=== PATIENT | female | born 1950 | race Caucasian/White ===

== ENCOUNTER 2017-08-25 17:04 | Inpatient (IN) | payer MEDICARE ==
[~2017-08-25] VITALS: Ht 158.8 cm; Wt 92.8 kg
[~2017-08-25 17:04] MED LIST: ACAR50TA; ASPI-516 CHEW; DULA10IN SQ; FLUD.1 PO; FLUO20CA12 PO; FLUT50SP EACH NARE; IBUP200T PO; LACTCAP8 PO; LEVO50TA4 PO; LOVA20TA PO; MONT10TA4 PO
[2017-08-25] MEDS ORDERED: ACETAMINOPHEN 325 MG TAB PO PRN (19:30)
[2017-08-25] MEDS ORDERED: SODIUM CHLORIDE 0.9% FLUSH 10 ML FLUSH IV FLUSH PRN (19:30)
[2017-08-25] MEDS ORDERED: SENNOSIDES 8.6 MG TAB PO PRN (19:30)
[2017-08-25] MEDS ORDERED: NALOXONE HCL 0.4 MG/ML AMP IV PUSH PRN (19:30)
[2017-08-25] MEDS ORDERED: ONDANSETRON HCL 4 MG/2 ML VIAL IVP PRN (19:30)
[2017-08-25] MEDS ORDERED: MAGNESIUM HYDROXIDE SUSP 30 ML CUP PO PRN (19:30)
[2017-08-25] MEDS ORDERED: BISACODYL 10 MG SUPP RECTAL PRN (19:30)
[2017-08-25] MEDS ORDERED: HEPARIN-D5W 25,000 U/250 ML 250 ML IV PRN (19:30)
[2017-08-25] MEDS ORDERED: diphenhydrAMINE HCL 50 MG CAP PO PRN (19:45)
[2017-08-25] MEDS ORDERED: DEXTROSE 50% IN WATER 50 ML VIAL(D50) IV PUSH PRN (19:45)
[2017-08-25] MEDS ORDERED: RESP: ALBUTEROL 2.5 MG/IPRATROPIUM 0.5 MG NEB (PRN) NEB (19:45)
[2017-08-25] MEDS ORDERED: GLUCAGON 1 MG/ML VIAL OTHER PRN (19:45)
[2017-08-25 20:00] VITALS: BP 97/50; PULSE 72; RESP 20; TEMP 97.7; O2SAT 94
[2017-08-25] MEDS: SODIUM CHLOR 0.9% 1000 ML INJ 1,000 ML IV SCH ×2 (20:00→22:01)
[2017-08-25] MEDS: SODIUM CHLORIDE 0.9% FLUSH 10 ML FLUSH IV FLUSH SCH (21:00)
[2017-08-25] MEDS: INSULIN ASPART SUPPLEMENTAL SCALE SQ SCH (21:00)
[2017-08-25] MEDS ORDERED: MORPHINE SULFATE 2 MG/ML INJ IV PUSH PRN (21:30)
[2017-08-25] MEDS ORDERED: ACETAMINOPHEN/HYDROcodone 325 MG/5 MG TAB PO PRN (21:30)
[2017-08-25] MEDS: MONTELUKAST SODIUM 10 MG TAB PO SCH (22:01)
[2017-08-25 22:35] LABS: TROPONIN I LESS THAN 0.02 NG/ML (0.02-0.05)
--- NOTE | 2017-08-25 22:57 | HHI.HP ---
[facility] [place] [facility] No Primary Care Physician Admission Diagnosis Right pulmonary emboli . Diagnoses: (1) Pulmonary emboli (2) Atypical chest pain Chief Complaint: Chest pain with left arm feeling "different" Travel History International Travel<30 Days: No Contact w/Intl Traveler <30 Da: No History of Present Illness Mrs. Sammy Jones) is a 67-year-old female with a history of coronary artery disease status post stent placement 3 years ago, type 2 diabetes mellitus, hypothyroidism, asthma, hyperlipidemia, depression, and obstructive sleep apnea who presented to the emergency department and [facility] onto 04/05/18 complaining of chest pain and left arm feeling "different". CT pulmonary angiogram showed right pulmonary emboli and she was transferred to [facility] for further medical management. Patient is seen in her hospital room. She complains of chest pressure for the past 4 years that was occurring today but also felt "different". She said her chest was actually painful today and her arm felt "different" from her shoulder to her elbow that if she cannot elucidate what she means by this. She states her symptoms lasted 1.5 hours and have occurred intermittently since but for shorter durations. She denies accompanying nausea, vomiting, diaphoresis, or palpitations but does report associated shortness of breath though this is accompanied her usual chest pressure and was not different today than usual. She reports feeling cold with her symptoms, which is unusual for her. She denies orthopnea and reports a history of asthma with strong smells as triggers. She reports a dry cough without congestion. She reports a sedentary lifestyle due to her lengthy problems with chest pressure, severe fatigue, balance difficulty, and dizziness over the past 4 years. She is currently on disability. She denies being on any hormone replacement therapy and denies any recent long traveling. She sees the following specialists: Dr. Bertrand, cardiology, Dr. Parker, pulmonology, and Dr. Foster, endocrinology. Review of Systems Except as stated in HPI: all other systems reviewed are Neg Past Family Social History Past Medical History Type 2 diabetes mellitus Hypothyroidism Coronary artery disease/stent placement 3 years ago Asthma Hyperlipidemia Obstructive sleep apnea on CPAP Depression . Past Surgical History Appendectomy Bilateral tubal ligation Hysterectomy Lung biopsy Cardiac catheterization with cardiac stent placement 3 years ago . Reported Medications Reported Meds & Active Scripts Active Reported Levothyroxine (Levothyroxine Sodium) 50 Mcg Tab 50 Mcg PO DAILY Acarbose 50 Mg Tab 50 Mg DAILY Ibuprofen Pm (Ibuprofen-Diphenhydramine) 200-38 Mg Tab 1 Tab PO HS PRN Fluticasone Nasal Casey 50 Mcg/Act Naspr Unknown Dose EACH NARE BID 50 mcg/spray Aspirin 81 Mg Chew 81 Mg CHEW DAILY Montelukast (Montelukast Sodium) 10 Mg Tab 10 Mg PO HS Lovastatin 20 Mg Tab 20 Mg PO DAILY Trulicity Inj (Dulaglutide Inj) 0.75 Mg/0.5 Ml Pen 0.75 Mg SQ Q7D Probiotic (Lactobacillus Acidophilus) 10 Billion Cell Cap Unknown Dose PO TIDAC Fludrocortisone (Fludrocortisone Acetate) 0.1 Mg Tab 0.1 Mg PO DAILY Fluoxetine (Fluoxetine HCl) 20 Mg Capsule 20 Mg PO DAILY . Allergies: Coded Allergies: cefuroxime (Verified Allergy, Severe, 08/25/17) shellfish derived (Verified Allergy, Severe, 08/25/17) cephalexin (Verified Allergy, Intermediate, 08/25/17) RASH amoxicillin (Verified Allergy, Mild, 08/25/17) STOMACH PAINS clavulanic acid (Verified Allergy, Mild, 08/25/17) STOMACH PAINS codeine (Verified Allergy, Mild, 08/25/17) VOMITTING Family History Mother is 86 years old, non-Hodgkin's lymphoma, heart disease Father was alcoholic and had heart problems Paternal grandmother had a CVA . Social History Tobacco: Denies ever smoking Alcohol: Denies Illicit Drugs: Denies . Physical Exam Vital Signs Pulse 72, Respiratory rate 18, Blood pressure 108/53, pulse oximetry 97% on 2 L nasal cannula Physical Exam GENERAL: This is an overweight female patient, in no apparent distress. INTEGUMENTARY: No rashes, ecchymoses or lesions. Cool and dry. HEAD: Atraumatic. Normocephalic. EYES: No scleral icterus. No injection or drainage. ENT: Nose without bleeding, purulent drainage. NECK: Trachea midline. No JVD. No carotid bruits auscultated. CARDIOVASCULAR: Regular rate and rhythm without murmurs, gallops, or rubs. RESPIRATORY: Clear to auscultation. Breath sounds equal bilaterally. No wheezes , rales, or rhonchi. GASTROINTESTINAL: Abdomen soft, non-tender, nondistended. No guarding. MUSCULOSKELETAL: Extremities without clubbing, cyanosis, or edema. No calf tenderness. NEUROLOGICAL: Awake and alert. Motor and sensory grossly within normal limits. Normal speech. . Laboratory Laboratory Tests Test 08/25/17 12:55 White Blood Count 8.8 TH/MM3 Red Blood Count 4.71 MIL/MM3 Hemoglobin 13.6 GM/DL Hematocrit 40.6 % Mean Corpuscular Volume 86.2 FL Mean Corpuscular Hemoglobin 28.9 PG Mean Corpuscular Hemoglobin Concent 33.5 % Red Cell Distribution Width 13.2 % Platelet Count 296 TH/MM3 Mean Platelet Volume 9.5 FL Immature Granulocyte % (Auto) 0.5 % Neutrophils (%) (Auto) 60.4 % Lymphocytes (%) (Auto) 30.5 % Monocytes (%) (Auto) 5.4 % Eosinophils (%) (Auto) 2.4 % Basophils (%) (Auto) 0.8 % Immature Granulocyte # (Auto) 0.0 TH/MM3 Neutrophils # (Auto) 5.3 TH/MM3 Lymphocytes # (Auto) 2.7 TH/MM3 Monocytes # (Auto) 0.5 TH/MM3 Eosinophils # (Auto) 0.2 TH/MM3 Basophils # (Auto) 0.1 TH/MM3 CBC Comment DIFF FINAL Differential Comment Prothrombin Time 9.5 SEC Prothromb Time International Ratio 0.9 RATIO Activated Partial Thromboplast Time 22.2 SEC D-Dimer Quantitative (PE/DVT) 0.51 MG/L FEU Blood Urea Nitrogen 15 MG/DL Creatinine 0.90 MG/DL Random Glucose 153 MG/DL Calcium Level 9.4 MG/DL Magnesium Level 2.5 MG/DL Sodium Level 139 MEQ/L Potassium Level 5.2 MEQ/L Chloride Level 104 MEQ/L Carbon Dioxide Level 28.0 MEQ/L Anion Gap 7 MEQ/L Estimat Glomerular Filtration Rate 63 ML/MIN Total Creatine Kinase 113 U/L Creatine Kinase MB LESS THAN 1.0 NG/ML Troponin I LESS THAN 0.02 NG/ML B-Type Natriuretic Peptide 52 PG/ML Laboratory Tests Test 08/25/17 21:19 Total Creatine Kinase 58 Troponin I LESS THAN 0.02 . Imaging Last Impressions Chest X-Ray 08/25/17 1247 Signed Impressions: Service Date/Time: Friday, August 25, 2017 13:46 - CONCLUSION: No acute disease. Darian Bermudez MD FACR CT Angiography 08/25/17 0000 Signed Impressions: Service Date/Time: Friday, August 25, 2017 14:14 - CONCLUSION: Filling defects within the right middle lobe pulmonary branches consistent with pulmonary emboli. Armando Monahan MD . Caprini VTE Risk Assessment Caprini VTE Risk Assessment: Mod/High Risk (score >= 2) Caprini Risk Assessment Model Point Value = 1 Point Value = 2 Point Value = 3 Point Value = 5 Age 41-60 Minor surgery BMI > 25 kg/m2 Swollen legs Varicose veins or History of unexplained or recurrent spontaneous Oral contraceptives or hormone replacement Sepsis (< 1 month) Serious lung disease, including pneumonia (< 1 month) Abnormal pulmonary function Acute myocardial infarction Congestive heart failure (< 1 month) History of inflammatory bowel disease Medical patient at bed rest Age 61-74 Arthroscopic surgery Major open surgery (> 45 min) Laparoscopic surgery (> 45 min) Malignancy Confined to bed (> 72 hours) Immobilizing plaster cast Central venous access Age >= 75 History of VTE Family history of VTE Factor V Leiden Prothrombin [id number] Lupus anticoagulant Anticardiolipin antibodies Elevated serum homocysteine Heparin-induced thrombocytopenia Other congenital or acquired thrombophilia Stroke (< 1 month) Elective arthroplasty Hip, pelvis, or leg fracture Acute spinal cord injury (< 1 month) Prophylaxis Regimen Total Risk Factor Score Risk Level Prophylaxis Regimen 0-1 Low Early ambulation 2 Moderate Order ONE of the following: *Sequential Compression Device (SCD) *Heparin 5000 units SQ BID 3-4 Higher Order ONE of the following medications: *Heparin 5000 units SQ TID *Enoxaparin/Lovenox 40 mg SQ daily (WT < 150 kg, CrCl > 30 mL/min) *Enoxaparin/Lovenox 30 mg SQ daily (WT < 150 kg, CrCl > 10-29 mL/min) *Enoxaparin/Lovenox 30 mg SQ BID (WT < 150 kg, CrCl > 30 mL/min) AND/OR *Sequential Compression Device (SCD) 5 or more Highest Order ONE of the following medications: *Heparin 5000 units SQ TID (Preferred with Epidurals) *Enoxaparin/Lovenox 40 mg SQ daily (WT < 150 kg, CrCl > 30 mL/min) *Enoxaparin/Lovenox 30 mg SQ daily (WT < 150 kg, CrCl > 10-29 mL/min) *Enoxaparin/Lovenox 30 mg SQ BID (WT < 150 kg, CrCl > 30 mL/min) AND *Sequential Compression Device (SCD) Assessment and Plan Problem List: (1) Pulmonary emboli ICD Code: I26.99 - Other pulmonary embolism without acute cor pulmonale (2) Atypical chest pain ICD Code: R07.89 - Atypical chest pain Status: Acute (3) Type 2 diabetes mellitus ICD Code: E11.9 - Type 2 diabetes mellitus without complications Status: Chronic (4) Asthma ICD Code: J45.909 - Unspecified asthma, uncomplicated Status: Chronic (5) Hypothyroidism ICD Code: E03.9 - Hypothyroidism, unspecified Status: Chronic (6) Depression ICD Code: F32.9 - Major depressive disorder, single episode, unspecified Status: Chronic (7) Obstructive sleep apnea ICD Code: G47.33 - Obstructive sleep apnea (adult) (pediatric) Status: Chronic (8) Hyperlipidemia ICD Code: E78.5 - Hyperlipidemia, unspecified Status: Chronic Assessment and Plan Mrs. Sammy Jones) is a 67-year-old female with a history of coronary artery disease status post stent placement 3 years ago, type 2 diabetes mellitus, hypothyroidism, asthma, hyperlipidemia, depression, and obstructive sleep apnea who presented to the emergency department and [facility] onto 04/05/18 complaining of chest pain and left arm feeling "different". CT pulmonary angiogram showed right pulmonary emboli and she was transferred to [facility] for further medical management. Pulmonary emboli, right middle lobe - Suspect secondary to sedentary lifestyle - Heparin drip - [place] by mouth when necessary for pain with morphine IV as needed for breakthrough pain - patient has had an adverse reaction of ?hemorrhage? to an oral anticoagulant - I suspect this was Plavix - clarify with Dr. Bertrand - see below - supplemental oxygen titrated to maintain oxygen saturation greater than 92% Atypical chest pain - Consult Dr. Bertrand patient's outpatient license issuer as per her request - Serial cardiac enzymes and EKGs to rule out ACS; reviewed initial 12-lead EKG with no ischemic changes and initial troponin 1 is less than 0.02 - Continuous cardiac telemetry to monitor for arrhythmia Type 2 Diabetes Mellitus - Hold home medications for now following contrast study, resume in 48 hours - Accu-Cheks before meals and at bedtime with low-dose NovoLog sliding scale coverage - Hypoglycemia protocol - Monitor trends and blood glucose readings and adjust treatments as indicated Asthma - Duo nebs as needed for shortness of breath or wheezing - avoid triggers - strong smells, perfumes Hypothyroidism - Continue home Synthroid Depression - Continue home Prozac Obstructive sleep apnea - Requested patient bring in her home CPAP device as she does not know her home settings Hyperlipidemia - patient not currently on statin and doesn't know why - she will clarify with PCP/cardiology as an outpatient DVT prophylaxis - On heparin drip Discussed Condition With Patient, RN, and Dr. Ramirez . Physician Certification 2 Midnight Certification Type: Admission for Inpatient Services Order for Inpatient Services The services are ordered in accordance with Medicare regulations or non- Medicare payer requirements, as applicable. In the case of services not specified as inpatient-only, they are appropriately provided as inpatient services in accordance with the 2-midnight benchmark. Estimated LOS (days): 4 days is the estimated time the patient will need to remain in the hospital, assuming treatment plan goals are met and no additional complications. Post-Hospital Plan: Home Problem Qualifiers (1) Type 2 diabetes mellitus: (2) Asthma: Qualified Codes: J45.998 - Other asthma (3) Hypothyroidism: Qualified Codes: E03.9 - Hypothyroidism, unspecified (4) Depression: Qualified Codes: F32.9 - Major depressive disorder, single episode, unspecified (5) Hyperlipidemia: Qualified Codes: E78.5 - Hyperlipidemia, unspecified Paige Xiong Aug 25, 2017 22:57
[2017-08-25 23:36] VITALS: PULSE 63
[2017-08-26] VITALS (8 sets, daily range): BP systolic 107–116; BP diastolic 54–58; PULSE 69–98; RESP 16–20; TEMP 97.2–98.7; O2SAT 94–98
[2017-08-26 04:57] LABS: AUTOMATED NEUTROPHIL # 4.6 TH/MM3 (1.8-7.7); BASOPHIL # 0.1 TH/MM3 (0-0.2); BASOPHIL % 1.1 % (0.0-2.0); EOSINOPHIL # 0.4 TH/MM3 (0-0.4); HEMATOCRIT 38.1 % (35.0-46.0); HEMOGLOBIN 13.2 GM/DL (11.6-15.3); LYMPH % 37.9 % (9.0-44.0); LYMPHOCYTE # 3.4 TH/MM3 (1.0-4.8); MEAN CELL VOLUME 85.2 FL (80.0-100.0); MEAN CORPUSCULAR HEMOGLOBIN 29.5 PG (27.0-34.0); MEAN CORPUSCULAR HGB CONC 34.6 % (32.0-36.0); MEAN PLATELET VOLUME 7.5 FL (7.0-11.0); MONO % 5.6 % (0.0-8.0); MONOCYTE # 0.5 TH/MM3 (0-0.9); NEUT % 51.4 % (16.0-70.0); PLATELET COUNT 271 TH/MM3 (150-450); RED BLOOD COUNT 4.47 MIL/MM3 (4.00-5.30); RED CELL DISTRIBUTION WIDTH 13.9 % (11.6-17.2); WHITE BLOOD COUNT 8.9 TH/MM3 (4.0-11.0)
[2017-08-26 05:21] LABS: BICARBONATE 28.8 MEQ/L (21.0-32.0); CALCIUM 9.2 MG/DL (8.5-10.1); CREATININE 0.84 MG/DL (0.50-1.00)
[2017-08-26 05:25] LABS: TROPONIN I LESS THAN 0.02 NG/ML (0.02-0.05)
[2017-08-26] MEDS: LEVOTHYROXINE SODIUM 50 MCG TAB PO SCH (05:36)
[2017-08-26] MEDS: INSULIN ASPART SUPPLEMENTAL SCALE SQ SCH ×4 (08:00→21:00)
[2017-08-26] MEDS: HEPARIN 25,000 UNITS-D5W 250 ML - PREMIX IV PRN ×2 (08:39→13:02)
[2017-08-26] MEDS: SODIUM CHLORIDE 0.9% FLUSH 10 ML FLUSH IV FLUSH SCH ×2 (09:00→21:00)
[2017-08-26] MEDS ORDERED: PRAVASTATIN SOD 20 MG TAB PO SCH (09:00)
[2017-08-26] MEDS: FLUDROCORTISONE ACETATE 0.1 MG TAB PO SCH (09:34)
[2017-08-26] MEDS: FLUoxetine HCL 20 MG CAP PO SCH (09:34)
[2017-08-26] MEDS: ASPIRIN 81 MG CHEW TAB CHEW SCH (09:34)
[2017-08-26] MEDS: SODIUM CHLOR 0.9% 1000 ML INJ 1,000 ML IV SCH (16:00)
--- NOTE | 2017-08-26 16:09 | HHI.PR ---
Objective Vitals Vital Signs Date Time Temp Pulse Resp B/P (MAP) Pulse Ox O2 Delivery O2 Flow Rate FiO2 08/26/17 12:00 97.2 78 18 112/54 (73) 98 08/26/17 08:00 98.2 71 18 116/58 (77) 94 08/26/17 08:00 74 08/26/17 04:00 98.4 84 20 107/57 (74) 96 08/26/17 03:58 75 08/26/17 00:22 74 08/26/17 00:00 98.1 79 20 113/58 (76) 97 08/25/17 23:36 63 08/25/17 21:43 95 Nasal Cannula 2.00 08/25/17 20:00 97.7 72 20 97/50 (66) 94 I/O 08/25/17 08/25/17 08/25/17 08/26/17 08/26/17 08/26/17 07:00 15:00 23:00 07:00 15:00 23:00 Intake Total 240 ml Balance 240 ml Intake Oral 240 ml # Voids 2 Result Diagram: 08/26/1742808/26/17428 A/P Problem List: (1) Pulmonary emboli ICD Code: I26.99 - Other pulmonary embolism without acute cor pulmonale (2) Atypical chest pain ICD Code: R07.89 - Atypical chest pain Status: Acute (3) Type 2 diabetes mellitus ICD Code: E11.9 - Type 2 diabetes mellitus without complications Status: Chronic (4) Asthma ICD Code: J45.909 - Unspecified asthma, uncomplicated Status: Chronic (5) Hypothyroidism ICD Code: E03.9 - Hypothyroidism, unspecified Status: Chronic (6) Depression ICD Code: F32.9 - Major depressive disorder, single episode, unspecified Status: Chronic (7) Obstructive sleep apnea ICD Code: G47.33 - Obstructive sleep apnea (adult) (pediatric) Status: Chronic (8) Hyperlipidemia ICD Code: E78.5 - Hyperlipidemia, unspecified Status: Chronic Problem Qualifiers (1) Type 2 diabetes mellitus: (2) Asthma: Qualified Codes: J45.998 - Other asthma (3) Hypothyroidism: Qualified Codes: E03.9 - Hypothyroidism, unspecified (4) Depression: Qualified Codes: F32.9 - Major depressive disorder, single episode, unspecified (5) Hyperlipidemia: Qualified Codes: E78.5 - Hyperlipidemia, unspecified Ag Quintero MD Aug 26, 2017 16:09
--- NOTE | 2017-08-26 16:31 | HHI.PR ---
Subjective Remarks denies sob, still c/o intermittent chest pain. requesting regular diet. Objective Vitals Vital Signs Date Time Temp Pulse Resp B/P (MAP) Pulse Ox O2 Delivery O2 Flow Rate FiO2 08/26/17 12:00 97.2 78 18 112/54 (73) 98 08/26/17 08:00 98.2 71 18 116/58 (77) 94 08/26/17 08:00 74 08/26/17 04:00 98.4 84 20 107/57 (74) 96 08/26/17 03:58 75 08/26/17 00:22 74 08/26/17 00:00 98.1 79 20 113/58 (76) 97 08/25/17 23:36 63 08/25/17 21:43 95 Nasal Cannula 2.00 08/25/17 20:00 97.7 72 20 97/50 (66) 94 I/O 08/25/17 08/25/17 08/25/17 08/26/17 08/26/17 08/26/17 07:00 15:00 23:00 07:00 15:00 23:00 Intake Total 240 ml Balance 240 ml Intake Oral 240 ml # Voids 2 Result Diagram: 08/26/1742808/26/[address] angiography of the chest reviewed by me shows filling defects within the right middle lobe pulmonary branches consistent with pulmonary emboli. Chest x-ray reviewed by me without any acute disease. Objective Remarks AAox3 nad Clear lungs BL S1S2 RRR, no MRG abdomen obese, soft, non tender No edema in lower extremities, no calf tenderness. Procedures none Medications and IVs Current Medications Medications (Trade) Dose Ordered Sig/Ruth Route Start Time Stop Time Status Last Admin Sodium Chloride 1,000 ml @ 100 mls/hr Q10H IV 08/25/17 20:00 (NS Flush) 2 ml UNSCH PRN IV FLUSH 08/25/17 19:30 (NS Flush) 2 ml BID IV FLUSH 08/25/17 21:00 (Tylenol) 650 mg Q4H PRN PO 08/25/17 19:30 (Zofran Inj) 4 mg Q6H PRN IVP 08/25/17 19:30 (Narcan Inj) 0.4 mg UNSCH PRN IV PUSH 08/25/17 19:30 (Milk Of Magnesia Liq) 30 ml Q12H PRN PO 08/25/17 19:30 (Senokot) 17.2 mg Q12H PRN PO 08/25/17 19:30 (Dulcolax Supp) 10 mg DAILY PRN RECTAL 08/25/17 19:30 (Aspirin Chew) 81 mg DAILY CHEW 08/26/17 09:00 08/26/17 09:34 (Florinef) 0.1 mg DAILY PO 08/26/17 09:00 08/26/17 09:34 (PROzac) 20 mg DAILY PO 08/26/17 09:00 08/26/17 09:34 (Synthroid) 50 mcg DAILY@0600 PO 08/26/17 06:00 08/26/17 05:36 (Singulair) 10 mg HS PO 08/25/17 21:00 08/25/17 22:01 (D50w (Vial) Inj) 50 ml UNSCH PRN IV PUSH 08/25/17 19:45 (Glucagon Inj) 1 mg UNSCH PRN OTHER 08/25/17 19:45 (NovoLOG SUPPLEMENTAL SCALE) 1 ACHS SLIDING SCALE SQ 08/25/17 21:00 08/26/17 13:34 (Benadryl) 50 mg HS PRN PO 08/25/17 19:45 (Duoneb Neb) 1 ampule Q4HR NEB PRN NEB 08/25/17 19:45 (York 5-325 Mg) 1 tab Q4H PRN PO 08/25/17 21:30 (Morphine Inj) 2 mg Q3H PRN IV PUSH 08/25/17 21:30 Heparin Sodium/ Dextrose 250 ml @ 17 mls/hr TITRATE PRN IV 08/25/17 21:45 08/26/17 13:02 A/P Problem List: (1) Pulmonary emboli ICD Code: I26.99 - Other pulmonary embolism without acute cor pulmonale (2) Atypical chest pain ICD Code: R07.89 - Atypical chest pain Status: Acute (3) Type 2 diabetes mellitus ICD Code: E11.9 - Type 2 diabetes mellitus without complications Status: Chronic (4) Asthma ICD Code: J45.909 - Unspecified asthma, uncomplicated Status: Chronic (5) Hypothyroidism ICD Code: E03.9 - Hypothyroidism, unspecified Status: Chronic (6) Depression ICD Code: F32.9 - Major depressive disorder, single episode, unspecified Status: Chronic (7) Obstructive sleep apnea ICD Code: G47.33 - Obstructive sleep apnea (adult) (pediatric) Status: Chronic (8) Hyperlipidemia ICD Code: E78.5 - Hyperlipidemia, unspecified Status: Chronic Assessment and Plan Mrs. Christianson (pronounced Bigly) is a 67-year-old female with a history of coronary artery disease status post stent placement 3 years ago, type 2 diabetes mellitus, hypothyroidism, asthma, hyperlipidemia, depression, and obstructive sleep apnea who presented to the emergency department and [facility] onto 04/05/18 complaining of chest pain and left arm feeling "different". CT pulmonary angiogram showed right pulmonary emboli and she was transferred to [facility] for further medical management. Pulmonary emboli, right middle lobe - Suspect secondary to sedentary lifestyle - Heparin drip - [place] by mouth when necessary for pain with morphine IV as needed for breakthrough pain - patient has had an adverse reaction of ?hemorrhage? to an oral anticoagulant - I suspect this was Plavix - clarify with Dr. Bertrand - see below - supplemental oxygen titrated to maintain oxygen saturation greater than 92% - 210 Keep patient on IV heparin for now - plan to transition to a novel anticoagulant in am pending cardiology approval. Atypical chest pain - Consult Dr. Bertrand patient's outpatient chaser helper as per her request - Serial cardiac enzymes and EKGs to rule out ACS; reviewed initial 12-lead EKG with no ischemic changes and initial troponin 1 is less than 0.02 - Continuous cardiac telemetry to monitor for arrhythmia - 2/10 troponin negative x2, suspect chest pain is related to pulmonary emboli. Type 2 Diabetes Mellitus - Hold home medications for now following contrast study, resume in 48 hours - Accu-Cheks before meals and at bedtime with low-dose NovoLog sliding scale coverage - Hypoglycemia protocol - Monitor trends and blood glucose readings and adjust treatments as indicated 2/10 blood sugars relatively well controlled. Will place on SSI with insulin NovoLog. Asthma - Duo nebs as needed for shortness of breath or wheezing - avoid triggers - strong smells, perfumes Hypothyroidism - Continue home Synthroid, seems stable. Depression - Continue home Prozac, seems stable. Obstructive sleep apnea - Requested patient bring in her home CPAP device as she does not know her home settings 2/10 Patient may use home C pap. Hyperlipidemia - patient not currently on statin and doesn't know why - she will clarify with PCP/cardiology as an outpatient DVT prophylaxis - On heparin drip Discharge Planning Continue to monitor in the medical floor. Cardiology consult pending. Problem Qualifiers (1) Type 2 diabetes mellitus: (2) Asthma: Qualified Codes: J45.998 - Other asthma (3) Hypothyroidism: Qualified Codes: E03.9 - Hypothyroidism, unspecified (4) Depression: Qualified Codes: F32.9 - Major depressive disorder, single episode, unspecified (5) Hyperlipidemia: Qualified Codes: E78.5 - Hyperlipidemia, unspecified Ag Quintero MD Aug 26, 2017 16:31
--- NOTE | 2017-08-26 20:03 | PD.CONS ---
HPI Service Cardiology Consult Requested By Dr. Jose Luis Haas Reason for Consult chest pain Primary Care Physician No Primary Care Physician History of Present Illness Mrs. Christianson, a 67-year-old lady, know, to me developed right lower chest pain, went to [facility] ED, found to have RML pulmonary emboli by CTA chest , then she was transferred to [facility] for further medical management. The chest pain she experienced was different from those she had with her angina. She denies accompanying nausea, vomiting, diaphoresis, or palpitations but does report associated shortness of breath though this is accompanied her usual chest pressure and was not different today than usual. She reports feeling cold with her symptoms, which is unusual for her. She denies orthopnea and reports a history of asthma with strong smells as triggers. She reports a dry cough without congestion. She reports a sedentary lifestyle due to her lengthy problems with chest pressure, severe fatigue, balance difficulty, and dizziness over the past 4 years. She is currently on disability. She denies being on any hormone replacement therapy and denies any recent long traveling. She has a history of CAD s/p mid LAD stenting with a AYLA 2014, later C 2016 showed patent LAD stent, type 2 diabetes mellitus, hypothyroidism, asthma, hyperlipidemia, depression, and obstructive sleep apnea. She is , non smoker Review of Systems Consitutional: COMPLAINS OF: Fatigue, DENIES: Fever, Chills, Weight gain, Weight loss Eyes: DENIES: Amaurosis Fugax, Change in vision Respiratory: COMPLAINS OF: See HPI Cardiovascular: COMPLAINS OF: See HPI Gastrointestinal: COMPLAINS OF: Nausea, DENIES: Vomiting, Change in bowel habits, Reflux, Bloody stools, Melena Genitourinary: DENIES: Urinary incontinence, Difficulty voiding Integumentary: COMPLAINS OF: Rash Neurologic: COMPLAINS OF: Tingling or numbness, DENIES: Memory problems, Poor Balance, Stroke symptoms Musculoskeletal: COMPLAINS OF: Joint pain, Muscle pain, Back pain, DENIES: Limited range of motion Psychiatric: COMPLAINS OF: Anxiety, Depression, Sleep disturbances Hematologic: COMPLAINS OF: Bruising tendencies, DENIES: Bleeding tendencies Past Family Social History Allergies: Coded Allergies: cefuroxime (Verified Allergy, Severe, 08/25/17) shellfish derived (Verified Allergy, Severe, 08/25/17) cephalexin (Verified Allergy, Intermediate, 08/25/17) RASH amoxicillin (Verified Allergy, Mild, 08/25/17) STOMACH PAINS clavulanic acid (Verified Allergy, Mild, 08/25/17) STOMACH PAINS codeine (Verified Allergy, Mild, 08/25/17) VOMITTING Past Medical History Type 2 diabetes mellitus Hypothyroidism Coronary artery disease/stent placement 2014 Asthma Hyperlipidemia Obstructive sleep apnea on CPAP Depression Past Surgical History Appendectomy Bilateral tubal ligation Hysterectomy Lung biopsy Cardiac catheterization with cardiac stent placement 2014 . Reported Medications Reported Meds & Active Scripts Active Reported Levothyroxine (Levothyroxine Sodium) 50 Mcg Tab 50 Mcg PO DAILY Acarbose 50 Mg Tab 50 Mg DAILY Ibuprofen Pm (Ibuprofen-Diphenhydramine) 200-38 Mg Tab 1 Tab PO HS PRN Fluticasone Nasal [place] 50 Mcg/Act Naspr Unknown Dose EACH NARE BID 50 mcg/spray Aspirin 81 Mg Chew 81 Mg CHEW DAILY Montelukast (Montelukast Sodium) 10 Mg Tab 10 Mg PO HS Lovastatin 20 Mg Tab 20 Mg PO DAILY Trulicity Inj (Dulaglutide Inj) 0.75 Mg/0.5 Ml Pen 0.75 Mg SQ Q7D Probiotic (Lactobacillus Acidophilus) 10 Billion Cell Cap Unknown Dose PO TIDAC Fludrocortisone (Fludrocortisone Acetate) 0.1 Mg Tab 0.1 Mg PO DAILY Fluoxetine (Fluoxetine HCl) 20 Mg Capsule 20 Mg PO DAILY Active Ordered Medications Current Medications Medications (Trade) Dose Ordered Sig/Ruth Route Start Time Stop Time Status Last Admin Sodium Chloride 1,000 ml @ 100 mls/hr Q10H IV 08/25/17 20:00 (NS Flush) 2 ml UNSCH PRN IV FLUSH 08/25/17 19:30 (NS Flush) 2 ml BID IV FLUSH 08/25/17 21:00 (Tylenol) 650 mg Q4H PRN PO 08/25/17 19:30 (Zofran Inj) 4 mg Q6H PRN IVP 08/25/17 19:30 (Narcan Inj) 0.4 mg UNSCH PRN IV PUSH 08/25/17 19:30 (Milk Of Magnesia Liq) 30 ml Q12H PRN PO 08/25/17 19:30 (Senokot) 17.2 mg Q12H PRN PO 08/25/17 19:30 (Dulcolax Supp) 10 mg DAILY PRN RECTAL 08/25/17 19:30 (Aspirin Chew) 81 mg DAILY CHEW 08/26/17 09:00 08/26/17 09:34 (Florinef) 0.1 mg DAILY PO 08/26/17 09:00 08/26/17 09:34 (PROzac) 20 mg DAILY PO 08/26/17 09:00 08/26/17 09:34 (Synthroid) 50 mcg DAILY@0600 PO 08/26/17 06:00 08/26/17 05:36 (Singulair) 10 mg HS PO 08/25/17 21:00 08/25/17 22:01 (D50w (Vial) Inj) 50 ml UNSCH PRN IV PUSH 08/25/17 19:45 (Glucagon Inj) 1 mg UNSCH PRN OTHER 08/25/17 19:45 (NovoLOG SUPPLEMENTAL SCALE) 1 ACHS SLIDING SCALE SQ 08/25/17 21:00 08/26/17 13:34 (Benadryl) 50 mg HS PRN PO 08/25/17 19:45 (Duoneb Neb) 1 ampule Q4HR NEB PRN NEB 08/25/17 19:45 (Russell 5-325 Mg) 1 tab Q4H PRN PO 08/25/17 21:30 (Morphine Inj) 2 mg Q3H PRN IV PUSH 08/25/17 21:30 Heparin Sodium/ Dextrose 250 ml @ 17 mls/hr TITRATE PRN IV 08/25/17 21:45 08/26/17 13:02 Family History Mother is 86 years old, non-Hodgkin's lymphoma, heart disease Father was alcoholic and had heart problems Paternal grandmother had a CVA Social History Tobacco: Denies ever smoking Alcohol: Denies Illicit Drugs: Denies Physical Exam Vital Signs Vital Signs Date Time Temp Pulse Resp B/P (MAP) Pulse Ox O2 Delivery O2 Flow Rate FiO2 08/26/17 16:00 Nasal Cannula 2.00 08/26/17 16:00 98.7 79 18 116/58 (77) 95 08/26/17 12:00 85 08/26/17 12:00 97.2 78 18 112/54 (73) 98 08/26/17 12:00 Nasal Cannula 2.00 08/26/17 08:00 98.2 71 18 116/58 (77) 94 08/26/17 08:00 74 08/26/17 08:00 Nasal Cannula 2.00 08/26/17 04:00 98.4 84 20 107/57 (74) 96 08/26/17 03:58 75 08/26/17 00:22 74 08/26/17 00:00 98.1 79 20 113/58 (76) 97 08/25/17 23:36 63 08/25/17 21:43 95 Nasal Cannula 2.00 Physical Exam GENERAL: This is an overweight female patient, in no apparent distress. INTEGUMENTARY: No rashes, ecchymoses or lesions. Cool and dry. HEAD: Atraumatic. Normocephalic. EYES: No scleral icterus. No injection or drainage. ENT: Nose without bleeding, purulent drainage. NECK: Trachea midline. No JVD. No carotid bruits auscultated. CARDIOVASCULAR: Regular rate and rhythm without murmurs, gallops, or rubs. RESPIRATORY: Clear to auscultation. Breath sounds equal bilaterally. No wheezes , rales, or rhonchi. GASTROINTESTINAL: Abdomen soft, non-tender, nondistended. No guarding. MUSCULOSKELETAL: Extremities without clubbing, cyanosis, or edema. No calf tenderness. NEUROLOGICAL: Awake and alert. Motor and sensory grossly within normal limits. Normal speech. . Laboratory Laboratory Tests Test 08/25/17 21:19 08/26/17 01:01 08/26/17 04:29 08/26/17 10:32 Total Creatine Kinase 58 53 Troponin I LESS THAN 0.02 LESS THAN 0.02 Activated Partial Thromboplast Time 87.7 88.4 White Blood Count 8.9 Red Blood Count 4.47 Hemoglobin 13.2 Hematocrit 38.1 Mean Corpuscular Volume 85.2 Mean Corpuscular Hemoglobin 29.5 Mean Corpuscular Hemoglobin Concent 34.6 Red Cell Distribution Width 13.9 Platelet Count 271 Mean Platelet Volume 7.5 Neutrophils (%) (Auto) 51.4 Lymphocytes (%) (Auto) 37.9 Monocytes (%) (Auto) 5.6 Eosinophils (%) (Auto) 4.0 Basophils (%) (Auto) 1.1 Neutrophils # (Auto) 4.6 Lymphocytes # (Auto) 3.4 Monocytes # (Auto) 0.5 Eosinophils # (Auto) 0.4 Basophils # (Auto) 0.1 CBC Comment DIFF FINAL Differential Comment Blood Urea Nitrogen 16 Creatinine 0.84 Random Glucose 155 Calcium Level 9.2 Sodium Level 138 Potassium Level 3.6 Chloride Level 102 Carbon Dioxide Level 28.8 Anion Gap 7 Estimat Glomerular Filtration Rate 68 Result Diagram: 08/26/1742808/26/17428 Assessment and Plan Problem List: (1) Hypertension ICD Codes: I10 - Essential (primary) hypertension (2) CAD in [place] artery ICD Codes: I25.10 - Atherosclerotic heart disease of [place] coronary artery without angina pectoris (3) Pulmonary emboli ICD Codes: I26.99 - Other pulmonary embolism without acute cor pulmonale (4) Type 2 diabetes mellitus ICD Codes: E11.9 - Type 2 diabetes mellitus without complications Status: Chronic (5) Hyperlipidemia ICD Codes: E78.5 - Hyperlipidemia, unspecified Status: Chronic Assessment and Plan 1. Pulmonary emboli, right middle lobe - No history suggesting of provoking event, but sedentary life style could be the etiology. Will need to r/o DVT also. Continue IV Heparin, consider to change to PO agent, either Coumadin or Eliquis versus Xarelto PE/DVT protocol. I prefer Wliquis for its simple PE regiment, but Patient said she will check with her insurance first. She reported of bruise easy while she was taking Plavix, but not contraindication for anticoagulation for newly dx of PE. 2. CAD, hx of LAD stent 2014, because of recurrent chest pressure, repeat LHC 2015, showed patent LAD stent. Her "chronic chest presssure" had not been change. So far negative ECG and series troponin. Atypical chest pain - Continuous cardiac telemetry to monitor for arrhythmia 3. Type 2 Diabetes Mellitus. Medicine team manage.. 4. Hypothyroidism - Continue home Synthroid 5. Depression - Continue home Prozac, which may attribute to her chronic fatique. 6. Obstructive sleep apnea - Requested patient bring in her home CPAP device as she does not know her home settings 7. Hyperlipidemia. will try low dose Atorvastatin. Problem Qualifiers (1) Type 2 diabetes mellitus: (2) Hyperlipidemia: Qualified Codes: E78.5 - Hyperlipidemia, unspecified Wing Anila Bertrand MD Aug 26, 2017 20:03
[2017-08-26] MEDS: MONTELUKAST SODIUM 10 MG TAB PO SCH (21:39)
--- NOTE | 2017-08-26 23:47 | EKG ---
Date Performed: 08/25/2017 Time Performed: 20:12:47 PTAGE: 67 years EKG: Sinus rhythm LOW QRS VOLTAGE IN PRECORDIAL LEADS BORDERLINE ECG PREVIOUS TRACING : 02/05/2015 10.33 Since the prior tracing, there has been no significant moreira DOCTOR: Joel Culp Interpretating Date/Time 08/26/2017 23:45:24
[2017-08-27] VITALS (7 sets, daily range): BP systolic 97–120; BP diastolic 53–71; PULSE 69–88; RESP 16–20; TEMP 97.7–98.1; O2SAT 94–98
--- NOTE | 2017-08-27 00:53 | EKG ---
Date Performed: 08/26/2017 Time Performed: 02:55:02 PTAGE: 67 years EKG: Sinus rhythm Indeterminate axis Possible inferior infarct - age undetermined Possible anteroseptal infarct - age undetermined Low QRS voltages in precordial leads Abnormal ECG PREVIOUS TRACING : 08/25/2017 20.12 Since the prior tracing, there has been no significant moreira DOCTOR: Joel Culp Interpretating Date/Time 08/27/2017 00:51:27
[2017-08-27] MEDS: SODIUM CHLOR 0.9% 1000 ML INJ 1,000 ML IV SCH ×3 (02:00→22:00)
[2017-08-27] MEDS: LEVOTHYROXINE SODIUM 50 MCG TAB PO SCH (06:02)
[2017-08-27 07:04] LABS: HEMATOCRIT 39.5 % (35.0-46.0); HEMOGLOBIN 13.4 GM/DL (11.6-15.3); MEAN CELL VOLUME 86.4 FL (80.0-100.0); MEAN CORPUSCULAR HEMOGLOBIN 29.3 PG (27.0-34.0); MEAN CORPUSCULAR HGB CONC 33.9 % (32.0-36.0); MEAN PLATELET VOLUME 7.8 FL (7.0-11.0); PLATELET COUNT 277 TH/MM3 (150-450); RED BLOOD COUNT 4.57 MIL/MM3 (4.00-5.30); RED CELL DISTRIBUTION WIDTH 14.1 % (11.6-17.2); WHITE BLOOD COUNT 8.3 TH/MM3 (4.0-11.0)
[2017-08-27 07:28] LABS: BICARBONATE 27.6 MEQ/L (21.0-32.0); CALCIUM 9.4 MG/DL (8.5-10.1); CREATININE 0.79 MG/DL (0.50-1.00)
[2017-08-27] MEDS: INSULIN ASPART SUPPLEMENTAL SCALE SQ SCH ×4 (08:00→21:00)
[2017-08-27] MEDS: FLUDROCORTISONE ACETATE 0.1 MG TAB PO SCH (08:21)
[2017-08-27] MEDS: FLUoxetine HCL 20 MG CAP PO SCH (08:21)
[2017-08-27] MEDS: ASPIRIN 81 MG CHEW TAB CHEW SCH (08:21)
[2017-08-27] MEDS: SODIUM CHLORIDE 0.9% FLUSH 10 ML FLUSH IV FLUSH SCH ×2 (08:21→21:15)
[2017-08-27] MEDS ORDERED: SODIUM CHLOR 0.9% 250 ML INJ 250 ML IV ONE (09:30)
--- NOTE | 2017-08-27 10:24 | RADRPT ---
EXAM DATE/TIME: 08/27/2017 09:44 [place] COMPARISON: CT PULMONARY ANGIOGRAM, August 25, 2017, 14:14. INDICATIONS : Pulmonary embolism. MEDICAL HISTORY : Hypothyroidism. Hypercholesterolemia. Diabetes mellitus type 2.Asthma SURGICAL HISTORY : Appendectomy.Tubal ligation. ENCOUNTER: Initial ACUITY: 3 days PAIN SCORE: 0/10 LOCATION: Bilateral leg. TECHNIQUE: Venous ultrasound of the left and right leg was performed from the inguinal ligament to the proximal calf. Real-time, color Doppler and spectral tracing, compression and augmentation techniques were us ed. FINDINGS: RIGHT LEG: There is normal compressibility of the deep venous system from the inguinal region to the proximal ca lf. No echogenic clot is seen in the lumen of the common femoral, femoral, popliteal, and posterior tibial veins. There is a normal response of the venous system to proximal and distal augmentation an d respiration. LEFT LEG: There is normal compressibility of the deep venous system from the inguinal region to the proximal ca lf. No echogenic clot is seen in the lumen of the common femoral, femoral, popliteal, and posterior tibial veins. There is a normal response of the venous system to proximal and distal augmentation an d respiration. CONCLUSION: No evidence of DVT within either extremity.. Marily Ang MD on August 27, 2017 at 10:18 Board Certified Radiologist. This report was verified electronically.
[2017-08-27 13:49] LABS: ALBUMIN 3.4 GM/DL (3.4-5.0); ALT (GPT) 16 U/L (10-53); AST (GOT) 19 U/L (15-37); CHOLESTEROL 234 MG/DL (120-200); DIRECT BILIRUBIN ADULT LESS THAN 0.1 MG/DL (0.0-0.2); TRIGLYCERIDES 307 MG/DL (42-150)
[2017-08-27 13:51] LABS: ALKALINE PHOSPHATASE 80 U/L (45-117); CHOLESTEROL/ HDL RATIO 5.66 RATIO; HDL CHOLESTEROL 41.3 MG/DL (40.0-60.0); INDIRECT BILIRUBIN 0.2 MG/DL (0.0-0.8); LDL CHOLESTEROL 131 MG/DL (0-99); TOTAL BILIRUBIN ADULT 0.3 MG/DL (0.2-1.0); TOTAL PROTEIN 7.2 GM/DL (6.4-8.2)
--- NOTE | 2017-08-27 14:13 | HHI.PR ---
Subjective Remarks states feels better compared to yesterday. Chest pain has resolved, denies sob. Slept very good. Objective Vitals Vital Signs Date Time Temp Pulse Resp B/P (MAP) Pulse Ox O2 Delivery O2 Flow Rate FiO2 08/27/17 12:00 98.0 88 20 120/67 (84) 96 08/27/17 08:00 98.1 85 20 97/54 (68) 98 08/27/17 08:00 78 08/27/17 08:00 Nasal Cannula 2.00 08/27/17 04:24 Nasal Cannula 2.00 08/27/17 04:00 98.1 81 18 108/71 (83) 94 08/27/17 03:45 72 08/27/17 01:00 Nasal Cannula 2.00 08/27/17 00:00 78 08/27/17 00:00 97.7 79 16 107/71 (83) 96 08/26/17 20:00 98.6 82 16 109/54 (72) 97 08/26/17 20:00 69 08/26/17 16:00 Nasal Cannula 2.00 08/26/17 16:00 98.7 79 18 116/58 (77) 95 08/26/17 16:00 98 I/O 08/26/17 08/26/17 08/26/17 08/27/17 08/27/17 08/27/17 07:00 15:00 23:00 07:00 15:00 23:00 Intake Total 240 ml 720 ml 170 ml Balance 240 ml 720 ml 170 ml Intake Oral 240 ml 720 ml IV Total 170 ml # Voids 2 6 2 Result Diagram: 08/27/1761808/27/17 0619 Imaging Last 72 hours Impressions Lower Extremity Ultrasound 08/27/17 0000 Signed Impressions: Service Date/Time: Sunday, August 27, 2017 09:44 - CONCLUSION: No evidence of DVT within either extremity.. Marily Ang MD Objective Remarks AAox3 nad Clear lungs BL S1S2 RRR, no MRG abdomen obese, soft, non tender No edema in lower extremities, no calf tenderness. Procedures none Medications and IVs Current Medications Medications (Trade) Dose Ordered Sig/Ruth Route Start Time Stop Time Status Last Admin Sodium Chloride 1,000 ml @ 100 mls/hr Q10H IV 08/25/17 20:00 (NS Flush) 2 ml UNSCH PRN IV FLUSH 08/25/17 19:30 (NS Flush) 2 ml BID IV FLUSH 08/25/17 21:00 (Tylenol) 650 mg Q4H PRN PO 08/25/17 19:30 (Zofran Inj) 4 mg Q6H PRN IVP 08/25/17 19:30 (Narcan Inj) 0.4 mg UNSCH PRN IV PUSH 08/25/17 19:30 (Milk Of Magnesia Liq) 30 ml Q12H PRN PO 08/25/17 19:30 (Senokot) 17.2 mg Q12H PRN PO 08/25/17 19:30 (Dulcolax Supp) 10 mg DAILY PRN RECTAL 08/25/17 19:30 (Aspirin Chew) 81 mg DAILY CHEW 08/26/17 09:00 08/27/17 08:21 (Florinef) 0.1 mg DAILY PO 08/26/17 09:00 08/27/17 08:21 (PROzac) 20 mg DAILY PO 08/26/17 09:00 08/27/17 08:21 (Synthroid) 50 mcg DAILY@0600 PO 08/26/17 06:00 08/27/17 06:02 (Singulair) 10 mg HS PO 08/25/17 21:00 08/26/17 21:39 (D50w (Vial) Inj) 50 ml UNSCH PRN IV PUSH 08/25/17 19:45 (Glucagon Inj) 1 mg UNSCH PRN OTHER 08/25/17 19:45 (NovoLOG SUPPLEMENTAL SCALE) 1 ACHS SLIDING SCALE SQ 08/25/17 21:00 08/26/17 13:34 (Benadryl) 50 mg HS PRN PO 08/25/17 19:45 (Duoneb Neb) 1 ampule Q4HR NEB PRN NEB 08/25/17 19:45 ([place] 5-325 Mg) 1 tab Q4H PRN PO 08/25/17 21:30 (Morphine Inj) 2 mg Q3H PRN IV PUSH 08/25/17 21:30 Heparin Sodium/ Dextrose 250 ml @ 17 mls/hr TITRATE PRN IV 08/25/17 21:45 08/26/17 13:02 (Lipitor) 10 mg HS PO 08/27/17 21:00 Urinary Catheter: No Vascular Central Line Catheter: No A/P Problem List: (1) Pulmonary emboli ICD Code: I26.99 - Other pulmonary embolism without acute cor pulmonale (2) Atypical chest pain ICD Code: R07.89 - Atypical chest pain Status: Acute (3) Type 2 diabetes mellitus ICD Code: E11.9 - Type 2 diabetes mellitus without complications Status: Chronic (4) Asthma ICD Code: J45.909 - Unspecified asthma, uncomplicated Status: Chronic (5) Hypothyroidism ICD Code: E03.9 - Hypothyroidism, unspecified Status: Chronic (6) Depression ICD Code: F32.9 - Major depressive disorder, single episode, unspecified Status: Chronic (7) Obstructive sleep apnea ICD Code: G47.33 - Obstructive sleep apnea (adult) (pediatric) Status: Chronic (8) Hyperlipidemia ICD Code: E78.5 - Hyperlipidemia, unspecified Status: Chronic Assessment and Plan Mrs. Sammy Jones) is a 67-year-old female with a history of coronary artery disease status post stent placement 3 years ago, type 2 diabetes mellitus, hypothyroidism, asthma, hyperlipidemia, depression, and obstructive sleep apnea who presented to the emergency department and [facility] onto 04/05/18 complaining of chest pain and left arm feeling "different". CT pulmonary angiogram showed right pulmonary emboli and she was transferred to [facility] for further medical management. Pulmonary emboli, right middle lobe - Suspect secondary to sedentary lifestyle - Heparin drip - [place] by mouth when necessary for pain with morphine IV as needed for breakthrough pain - patient has had an adverse reaction of ?hemorrhage? to an oral anticoagulant - I suspect this was Plavix - clarify with Dr. Bertrand - see below - supplemental oxygen titrated to maintain oxygen saturation greater than 92% - 08/26 Keep patient on IV heparin for now - plan to transition to a novel anticoagulant in am pending cardiology approval. - 08/27 Cardiology consulted - appreciate recommendations. Will DC IV heprin and transition to Eliquis. Atypical chest pain - Consult Dr. Bertrand patient's outpatient wet primer powder blender as per her request - Serial cardiac enzymes and EKGs to rule out ACS; reviewed initial 12-lead EKG with no ischemic changes and initial troponin 1 is less than 0.02 - Continuous cardiac telemetry to monitor for arrhythmia - 08/26 troponin negative x2, suspect chest pain is related to pulmonary emboli. Type 2 Diabetes Mellitus - Hold home medications for now following contrast study, resume in 48 hours - Accu-Cheks before meals and at bedtime with low-dose NovoLog sliding scale coverage - Hypoglycemia protocol - Monitor trends and blood glucose readings and adjust treatments as indicated 08/27 blood sugars relatively well controlled. Continue SSI with insulin NovoLog. Asthma - Duo nebs as needed for shortness of breath or wheezing - avoid triggers - strong smells, perfumes Hypothyroidism - Continue home Synthroid, seems stable. Depression - Continue home Prozac, seems stable. Obstructive sleep apnea - Requested patient bring in her home CPAP device as she does not know her home settings 08/26 Patient may use home C pap. Hyperlipidemia - patient not currently on statin and doesn't know why - she will clarify with PCP/cardiology as an outpatient DVT prophylaxis - On heparin drip Discharge Planning Continue to monitor in the medical floor. Cardiology consult pending. Problem Qualifiers (1) Type 2 diabetes mellitus: (2) Asthma: Qualified Codes: J45.998 - Other asthma (3) Hypothyroidism: Qualified Codes: E03.9 - Hypothyroidism, unspecified (4) Depression: Qualified Codes: F32.9 - Major depressive disorder, single episode, unspecified (5) Hyperlipidemia: Qualified Codes: E78.5 - Hyperlipidemia, unspecified Ag Quintero MD Aug 27, 2017 14:12
[2017-08-27] MEDS ORDERED: ATORVASTATIN 10 MG TAB PO SCH (21:00)
[2017-08-27] MEDS: APIXABAN 5 MG TABLET PO SCH (21:09)
[2017-08-27] MEDS: MONTELUKAST SODIUM 10 MG TAB PO SCH (21:09)
--- NOTE | 2017-08-27 22:53 | PD.CARD.PN ---
Subjective Subjective Remarks feeling better. Objective Medications Current Medications Medications (Trade) Dose Ordered Sig/Ruth Route Start Time Stop Time Status Last Admin Sodium Chloride 1,000 ml @ 100 mls/hr Q10H IV 08/25/17 20:00 (NS Flush) 2 ml UNSCH PRN IV FLUSH 08/25/17 19:30 (NS Flush) 2 ml BID IV FLUSH 08/25/17 21:00 (Tylenol) 650 mg Q4H PRN PO 08/25/17 19:30 (Zofran Inj) 4 mg Q6H PRN IVP 08/25/17 19:30 (Narcan Inj) 0.4 mg UNSCH PRN IV PUSH 08/25/17 19:30 (Milk Of Magnesia Liq) 30 ml Q12H PRN PO 08/25/17 19:30 (Senokot) 17.2 mg Q12H PRN PO 08/25/17 19:30 (Dulcolax Supp) 10 mg DAILY PRN RECTAL 08/25/17 19:30 (Aspirin Chew) 81 mg DAILY CHEW 08/26/17 09:00 08/27/17 08:21 (Florinef) 0.1 mg DAILY PO 08/26/17 09:00 08/27/17 08:21 (PROzac) 20 mg DAILY PO 08/26/17 09:00 08/27/17 08:21 (Synthroid) 50 mcg DAILY@0600 PO 08/26/17 06:00 08/27/17 06:02 (Singulair) 10 mg HS PO 08/25/17 21:00 08/27/17 21:09 (D50w (Vial) Inj) 50 ml UNSCH PRN IV PUSH 08/25/17 19:45 (Glucagon Inj) 1 mg UNSCH PRN OTHER 08/25/17 19:45 (NovoLOG SUPPLEMENTAL SCALE) 1 ACHS SLIDING SCALE SQ 08/25/17 21:00 08/26/17 13:34 (Benadryl) 50 mg HS PRN PO 08/25/17 19:45 (Duoneb Neb) 1 ampule Q4HR NEB PRN NEB 08/25/17 19:45 ([place] 5-325 Mg) 1 tab Q4H PRN PO 08/25/17 21:30 (Morphine Inj) 2 mg Q3H PRN IV PUSH 08/25/17 21:30 (Lipitor) 10 mg HS PO 08/27/17 21:00 08/27/17 21:10 (Eliquis) 10 mg BID PO 08/27/17 21:00 08/27/17 21:09 Vital Signs / I&O Vital Signs Date Time Temp Pulse Resp B/P (MAP) Pulse Ox O2 Delivery O2 Flow Rate FiO2 08/27/17 20:00 97.8 69 20 97/53 (68) 98 08/27/17 20:00 76 08/27/17 20:00 Nasal Cannula 2.00 08/27/17 16:25 Nasal Cannula 2.00 08/27/17 16:00 97.9 81 20 97/53 (68) 97 08/27/17 16:00 87 08/27/17 12:00 Nasal Cannula 2.00 08/27/17 12:00 98.0 88 20 120/67 (84) 96 08/27/17 12:00 76 08/27/17 08:00 98.1 85 20 97/54 (68) 98 08/27/17 08:00 78 08/27/17 08:00 Nasal Cannula 2.00 08/27/17 04:24 Nasal Cannula 2.00 08/27/17 04:00 98.1 81 18 108/71 (83) 94 08/27/17 03:45 72 08/27/17 01:00 Nasal Cannula 2.00 08/27/17 00:00 78 08/27/17 00:00 97.7 79 16 107/71 (83) 96 I/O 08/26/17 08/26/17 08/26/17 08/27/17 08/27/17 08/27/17 07:00 15:00 23:00 07:00 15:00 23:00 Intake Total 240 ml 720 ml 170 ml 720 ml Balance 240 ml 720 ml 170 ml 720 ml Intake Oral 240 ml 720 ml 720 ml IV Total 170 ml # Voids 2 6 2 Physical Exam GENERAL: This is an overweight female patient, in no apparent distress. INTEGUMENTARY: No rashes, ecchymoses or lesions. Cool and dry. HEAD: Atraumatic. Normocephalic. EYES: No scleral icterus. No injection or drainage. ENT: Nose without bleeding, purulent drainage. NECK: Trachea midline. No JVD. No carotid bruits auscultated. CARDIOVASCULAR: Regular rate and rhythm without murmurs, gallops, or rubs. RESPIRATORY: Clear to auscultation. Breath sounds equal bilaterally. No wheezes , rales, or rhonchi. GASTROINTESTINAL: Abdomen soft, non-tender, nondistended. No guarding. MUSCULOSKELETAL: Extremities without clubbing, cyanosis, or edema. No calf tenderness. NEUROLOGICAL: Awake and alert. Motor and sensory grossly within normal limits. Normal speech. Laboratory Laboratory Tests Test 08/27/17 06:19 White Blood Count 8.3 TH/MM3 Red Blood Count 4.57 MIL/MM3 Hemoglobin 13.4 GM/DL Hematocrit 39.5 % Mean Corpuscular Volume 86.4 FL Mean Corpuscular Hemoglobin 29.3 PG Mean Corpuscular Hemoglobin Concent 33.9 % Red Cell Distribution Width 14.1 % Platelet Count 277 TH/MM3 Mean Platelet Volume 7.8 FL Activated Partial Thromboplast Time 65.1 SEC Blood Urea Nitrogen 15 MG/DL Creatinine 0.79 MG/DL Random Glucose 146 MG/DL Calcium Level 9.4 MG/DL Sodium Level 136 MEQ/L Potassium Level 3.7 MEQ/L Chloride Level 101 MEQ/L Carbon Dioxide Level 27.6 MEQ/L Anion Gap 7 MEQ/L Estimat Glomerular Filtration Rate 73 ML/MIN Total Bilirubin 0.3 MG/DL Direct Bilirubin LESS THAN 0.1 MG/DL Indirect Bilirubin 0.2 MG/DL Aspartate Amino Transf (AST/SGOT) 19 U/L Alanine Aminotransferase (ALT/SGPT) 16 U/L Alkaline Phosphatase 80 U/L Total Protein 7.2 GM/DL Albumin 3.4 GM/DL Triglycerides Level 307 MG/DL Cholesterol Level 234 MG/DL LDL Cholesterol 131 MG/DL HDL Cholesterol 41.3 MG/DL Cholesterol/HDL Ratio 5.66 RATIO Imaging Last 24 hours Impressions Lower Extremity Ultrasound 08/27/17 0000 Signed Impressions: Service Date/Time: Sunday, August 27, 2017 09:44 - CONCLUSION: No evidence of DVT within either extremity.. Marily Ang MD Assessment and Plan Problem List: (1) Hypertension ICD Codes: I10 - Essential (primary) hypertension (2) CAD in [place] artery ICD Codes: I25.10 - Atherosclerotic heart disease of [place] coronary artery without angina pectoris (3) Pulmonary emboli ICD Codes: I26.99 - Other pulmonary embolism without acute cor pulmonale Status: Acute (4) Type 2 diabetes mellitus ICD Codes: E11.9 - Type 2 diabetes mellitus without complications Status: Chronic (5) Hyperlipidemia ICD Codes: E78.5 - Hyperlipidemia, unspecified Status: Chronic Assessment and Plan 1. Pulmonary emboli, right middle lobe - No history suggesting of provoking event, but sedentary life style could be the etiology. BLE US negative for DVT. Started on Eliquis PE protocol 2. CAD, hx of LAD stent 2014, because of recurrent chest pressure, repeat LHC 2015, showed patent LAD stent. Her "chronic chest pressure" had not been change. So far negative ECG and series troponin. Atypical chest pain - Continuous cardiac telemetry to monitor for arrhythmia 3. Type 2 Diabetes Mellitus. Medicine team manage.. 4. Hypothyroidism - Continue home Synthroid 5. Depression - Continue home Prozac, which may attribute to her chronic fatique. 6. Obstructive sleep apnea - Requested patient bring in her home CPAP device as she does not know her home settings 7. Hyperlipidemia. will try low dose Atorvastatin. Problem Qualifiers (1) Hypertension: Qualified Codes: I10 - Essential (primary) hypertension (2) Pulmonary emboli: Qualified Codes: I26.99 - Other pulmonary embolism without acute cor pulmonale (3) Type 2 diabetes mellitus: (4) Hyperlipidemia: Qualified Codes: E78.5 - Hyperlipidemia, unspecified Wing Anila Bertrand MD Aug 27, 2017 22:53
[2017-08-28] VITALS: BP 91/47; PULSE 75; RESP 20; TEMP 98.6; O2SAT 97
[2017-08-28 04:00] VITALS: BP 112/65; PULSE 77; PULSE 86; RESP 20; TEMP 98.2; O2SAT 98
[2017-08-28] MEDS: LEVOTHYROXINE SODIUM 50 MCG TAB PO SCH (05:45)
[2017-08-28 07:02] LABS: HEMATOCRIT 38.7 % (35.0-46.0); HEMOGLOBIN 13.2 GM/DL (11.6-15.3); MEAN CELL VOLUME 85.9 FL (80.0-100.0); MEAN CORPUSCULAR HEMOGLOBIN 29.4 PG (27.0-34.0); MEAN CORPUSCULAR HGB CONC 34.2 % (32.0-36.0); MEAN PLATELET VOLUME 7.6 FL (7.0-11.0); PLATELET COUNT 263 TH/MM3 (150-450); RED CELL DISTRIBUTION WIDTH 14.2 % (11.6-17.2)
[2017-08-28 08:00] VITALS: BP 105/51; PULSE 83; PULSE 99; RESP 20; TEMP 97.9; O2SAT 96
[2017-08-28] MEDS: INSULIN ASPART SUPPLEMENTAL SCALE SQ SCH ×2 (08:00→12:00)
[2017-08-28] MEDS: SODIUM CHLOR 0.9% 1000 ML INJ 1,000 ML IV SCH (08:00)
[2017-08-28] MEDS: FLUoxetine HCL 20 MG CAP PO SCH (09:04)
[2017-08-28] MEDS: APIXABAN 5 MG TABLET PO SCH (09:04)
[2017-08-28] MEDS: SODIUM CHLORIDE 0.9% FLUSH 10 ML FLUSH IV FLUSH SCH (09:04)
[2017-08-28] MEDS: FLUDROCORTISONE ACETATE 0.1 MG TAB PO SCH (09:04)
[2017-08-28] MEDS: ASPIRIN 81 MG CHEW TAB CHEW SCH (09:04)
[2017-08-28] MEDS ORDERED: APIX5TAB PO ×2 (11:51)
--- NOTE | 2017-08-28 11:53 | HHI.DCPOC ---
Discharge Care Plan Diagnosis: (1) CAD in [place] artery (2) Hypertension (3) Type 2 diabetes mellitus (4) Obstructive sleep apnea (5) Hypothyroidism (6) Hyperlipidemia (7) Pulmonary emboli Goals to Promote Your Health * To prevent worsening of your condition and complications * To maintain your health at the optimal level Directions to Meet Your Goals Take your medications as prescribed Follow your dietary instruction Follow activity as directed Keep your appointments as scheduled Take your immunizations and boosters as scheduled If your symptoms worsen call your PCP, if no PCP go to Urgent Care Center or Emergency Room Smoking is Dangerous to Your Health. Avoid second hand smoke Call the 24-hour hour crisis hotline for domestic abuse at Ag Quintero MD Aug 28, 2017 11:53
[2017-08-28 12:00] VITALS: BP 195/54; PULSE 76; RESP 20; TEMP 97.3; O2SAT 95
--- NOTE | 2017-08-28 12:08 | HHI.DS ---
Discharge Summary Admission Date Aug 25, 2017 at 19:23 Discharge Date: Aug 28, 2017 Admitting Diagnosis Right pulmonary emboli . (1) Pulmonary emboli ICD Code: I26.99 - Other pulmonary embolism without acute cor pulmonale Diagnosis: Principal Status: Acute (2) Atypical chest pain ICD Code: R07.89 - Atypical chest pain Diagnosis: Principal Status: Resolved (3) Type 2 diabetes mellitus ICD Code: E11.9 - Type 2 diabetes mellitus without complications Diagnosis: Principal Status: Chronic (4) Asthma ICD Code: J45.909 - Unspecified asthma, uncomplicated Diagnosis: Principal Status: Chronic (5) Hypothyroidism ICD Code: E03.9 - Hypothyroidism, unspecified Diagnosis: Principal Status: Chronic (6) Depression ICD Code: F32.9 - Major depressive disorder, single episode, unspecified Diagnosis: Principal Status: Chronic (7) Obstructive sleep apnea ICD Code: G47.33 - Obstructive sleep apnea (adult) (pediatric) Diagnosis: Principal Status: Chronic (8) Hyperlipidemia ICD Code: E78.5 - Hyperlipidemia, unspecified Diagnosis: Principal Status: Chronic Procedures none Brief History - From Admission Mrs. Sammy Jones) is a 67-year-old female with a history of coronary artery disease status post stent placement 3 years ago, type 2 diabetes mellitus, hypothyroidism, asthma, hyperlipidemia, depression, and obstructive sleep apnea who presented to the emergency department and [facility] onto 04/05/18 complaining of chest pain and left arm feeling "different". CT pulmonary angiogram showed right pulmonary emboli and she was transferred to [facility] for further medical management. Patient is seen in her hospital room. She complains of chest pressure for the past 4 years that was occurring today but also felt "different". She said her chest was actually painful today and her arm felt "different" from her shoulder to her elbow that if she cannot elucidate what she means by this. She states her symptoms lasted 1.5 hours and have occurred intermittently since but for shorter durations. She denies accompanying nausea, vomiting, diaphoresis, or palpitations but does report associated shortness of breath though this is accompanied her usual chest pressure and was not different today than usual. She reports feeling cold with her symptoms, which is unusual for her. She denies orthopnea and reports a history of asthma with strong smells as triggers. She reports a dry cough without congestion. She reports a sedentary lifestyle due to her lengthy problems with chest pressure, severe fatigue, balance difficulty, and dizziness over the past 4 years. She is currently on disability. She denies being on any hormone replacement therapy and denies any recent long traveling. She sees the following specialists: Dr. Bertrand, cardiology, Dr. Parker, pulmonology, and Dr. Foster, endocrinology. CBC/BMP: 08/28/17 0611 08/27/17 0619 Significant Findings Laboratory Tests Test 08/25/17 21:19 08/26/17 01:01 08/26/17 04:29 08/26/17 10:32 Troponin I LESS THAN 0.02 NG/ML LESS THAN 0.02 NG/ML Activated Partial Thromboplast Time 87.7 SEC (24.3-30.1) 88.4 SEC (24.3-30.1) Random Glucose 155 MG/DL (74-106) Estimat Glomerular Filtration Rate 68 ML/MIN (>89) Test 08/26/17 21:30 08/27/17 06:19 08/28/17 06:11 Activated Partial Thromboplast Time 64.6 SEC (24.3-30.1) 65.1 SEC (24.3-30.1) 23.3 SEC (24.3-30.1) Troponin I LESS THAN 0.02 NG/ML Random Glucose 146 MG/DL (74-106) Estimat Glomerular Filtration Rate 73 ML/MIN (>89) Triglycerides Level 307 MG/DL (42-150) Cholesterol Level 234 MG/DL (120-200) LDL Cholesterol 131 MG/DL (0-99) Imaging Last Impressions Lower Extremity Ultrasound 08/27/17 0000 Signed Impressions: Service Date/Time: Sunday, August 27, 2017 09:44 - CONCLUSION: No evidence of DVT within either extremity.. Marily Ang MD PE at Discharge AAox3 nad Clear lungs BL S1S2 RRR, no MRG abdomen obese, soft, non tender No edema in lower extremities, no calf tenderness. Pt update on day of discharge The patient denies chest pain or shortness of breath. Blood pressure seems to be improved. Patient wants to go home. There is no evidence of active bleeding. Hospital Course Mrs. Christianson (pronounced Bigly) is a 67-year-old female with a history of coronary artery disease status post stent placement 3 years ago, type 2 diabetes mellitus, hypothyroidism, asthma, hyperlipidemia, depression, and obstructive sleep apnea who presented to the emergency department and [facility] onto 04/05/18 complaining of chest pain and left arm feeling "different". CT pulmonary angiogram showed right pulmonary emboli and she was transferred to [facility] for further medical management. Pulmonary emboli, right middle lobe - Suspect secondary to sedentary lifestyle. The patient was started on heparin drip, [place] by mouth and IV morphine as needed were ordered for pain control. The patient complained story that she had adverse reaction to anticoagulant, however she did not remember the name. Supplemental oxygen started. Cardiology was consulted for recommendations regarding anticoagulant agent. Venous ultrasound of lower extremities negative for DVT. The patient was started on heparin drip in the emergency department which was continued and was transitioned to oral Eliquis after cardiology cleared the patient does not have any allergy or indication to place the patient a on anticoagulation. Atypical chest pain - Consulted Dr. Bertrand patient's outpatient time recorder as per her request -Serial cardiac enzymes negative. 12-lead EKG without ischemic changes. -Monitor on telemetry during hospital stay. - 2/10 troponin negative x2, suspect chest pain is related to pulmonary emboli. Chest pain resolved. Type 2 Diabetes Mellitus Oral home hypoglycemic agents were held on admission. - Accu-Cheks before meals and at bedtime with low-dose NovoLog sliding scale coverage - Hypoglycemia protocol instituted during hospital stay. -Blood sugar was monitored. -Blood sugars remained relatively stable. Asthma - Duo nebs as needed for shortness of breath or wheezing - avoid triggers - strong smells, perfumes Hypothyroidism - Continued home Synthroid, remained stable Depression - Continued home Prozac, remained stable Obstructive sleep apnea - Requested patient bring in her home CPAP device as she does not know her home settings 2/10 Patient may use home C pap. Hyperlipidemia -Continued statin. DVT prophylaxis -The patient initially on heparin drip switched to oral Eliquis. Pt Condition on Discharge: Stable Discharge Disposition: Discharge Home Discharge Time: <= 30 minutes Discharge Instructions DIET: Follow Instructions for: Heart Healthy Diet, Diabetic Diet Activities you can perform: Regular-No Restrictions Activities to Avoid: Prolonged Standing, Strenuous Activity Follow up Referrals: PCP Follow-up - 2 Weeks New Medications: Apixaban (Eliquis) 5 Mg Tab 5 MG PO BID for Blood Clot Prevention, #60 TAB 0 Refills Start taking on September 04 after finishing the 10 mg dose tablets. Apixaban (Eliquis) 5 Mg Tab 10 MG PO BID for Blood Clot Prevention, #13 TAB Continued Medications: Acarbose (Acarbose) 50 Mg Tab 50 MG DAILY for Blood Sugar Management, #30 TAB 0 Refills Aspirin (Aspirin) 81 Mg Chew 81 MG CHEW DAILY, TAB 0 Refills Dulaglutide Inj (Trulicity Inj) 0.75 Mg/0.5 Ml Pen 0.75 MG SQ Q7D for Blood Sugar Management, #4 PEN 0 Refills Fludrocortisone (Fludrocortisone) 0.1 Mg Tab 0.1 MG PO DAILY, #30 TAB 0 Refills Fluoxetine (Fluoxetine) 20 Mg Capsule 20 MG PO DAILY, #30 CAP 0 Refills Fluticasone Nasal [place] (Fluticasone Nasal [place]) 50 Mcg/Act Naspr Unknown Dose EACH NARE BID for Allergy Management, #1 BOTTLE 0 Refills 50 mcg/spray Ibuprofen-Diphenhydramine (Ibuprofen Pm) 200-38 Mg Tab 1 TAB PO HS PRN for PAIN/SLEEP, TAB 0 Refills Lactobacillus Acidophilus (Probiotic) 10 Billion Cell Cap Unknown Dose PO TIDAC for Nutritional Supplement, #90 CAP 0 Refills Levothyroxine (Levothyroxine) 50 Mcg Tab 50 MCG PO DAILY for Thyroid, #30 TAB 0 Refills Lovastatin (Lovastatin) 20 Mg Tab 20 MG PO DAILY for Cholesterol Management, #30 TAB 0 Refills Montelukast (Montelukast) 10 Mg Tab 10 MG PO HS, #30 TAB 0 Refills Ag Quintero MD Aug 28, 2017 12:08
== END 2017-08-28 13:05 | disposition home or self-care (01) | DRG 176 ==
LOC: NEDDLT 17:04 → N04A 19:23
PROVIDERS: ADMIT Hospitalist; ATTEND Hospitalist
DX: I26.99 Other pulmonary embolism without acute cor pulmonale (principal); I95.9 Hypotension, unspecified; I10 Essential (primary) hypertension; F32.9 Major depressive disorder, single episode, unspecified; E03.9 Hypothyroidism, unspecified; E11.9 Type 2 diabetes mellitus without complications; G47.33 Obstructive sleep apnea (adult) (pediatric); I25.119 Atherosclerotic heart disease of native coronary artery with unspecified angina pectoris; Z95.5 Presence of coronary angioplasty implant and graft; J45.909 Unspecified asthma, uncomplicated; E78.5 Hyperlipidemia, unspecified; Z79.82 Long term (current) use of aspirin; Z79.899 Other long term (current) drug therapy; E66.3 Overweight; Z68.36 Body mass index [BMI] 36.0-36.9, adult
CPT/HCPCS: 71045; 71275; 80048; 80061; 80076; 82272; 82550; 82552; 82948; 83735; 83880; 84484; 85025; 85027; 85379; 85610; 85730; 93005; 93970; 96374; J1644; J1815; J7050; Q9967